=== PATIENT | female | born 1970 | race African-American/Black ===

== ENCOUNTER 2020-09-23 15:13 | Outpatient (CLI) | payer OTHER, MEDICAID | END 2020-09-23 15:14 | disposition home or self-care (01) | LOC: EDBD 15:13 → CSHRAD 15:13 | PROVIDERS: ATTEND Physician Assistant | DX: S32.010D Wedge compression fracture of first lumbar vertebra, subsequent encounter for fracture with routine healing (principal) | CPT/HCPCS: 72100 ==